=== PATIENT | male | born 1995 | race Caucasian/White ===

== ENCOUNTER 2018-10-25 16:32 | Observation (INO) ==
[2018-10-25 17:31] LABS: OCCULT BLOOD 1 POSITIVE (NEGATIVE)
[2018-10-25 17:32] LABS: BASO# 0.03 X1000 (0.0-0.2); BASO% 0.2 % (0.0-0.8); EOS# 0.02 X1000 (0.0-0.7); EOS% 0.2 % (0.0-10.0); HEMATOCRIT 45.4 % (42.0-52.0); HEMOGLOBIN 16.5 g/dL (14.0-18.0); IMM GRAN# 0.03 X1000 (0.0-0.04); IMM GRAN% 0.2 % (0.0-0.5); LYMPH% 7.8 % (20.5-51.1); MCH 28.1 PG (27-31); MCHC 36.3 g/dL (33-37); MCV 77.3 FL (81-99); MONO% 5.4 % (1.7-9.3); MPV 10.3 FL (7.4-10.4); NEUT# 11.11 X1000 (1.4-6.5); NEUT% 86.2 % (42.2-75.2); PLT 239 X1000 (130-400); RBC 5.87 XMIL (4.7-6.1); RDW 13.7 % (11.5-14.5); WBC 12.89 X1000 (4.8-10.8)
--- NOTE | 2018-10-25 17:43 | PROVIDER DOCUMENTATION ---
HPI-Abdominal Pain/GI Problem - General Chief Complaint: Rectal Bleeding Stated Complaint: PASSING BLOOD FEVER Time Seen by Provider: 10/25/18 16:56 Source: patient, family Allergies/Adverse Reactions: Patient Allergies Allergy/AdvReac Type Severity Reaction Status Date / Time diphenhydramine AdvReac Unknown Verified 10/25/18 17:23 [From Benadryl] Home Medications: Home Medication List Medication Instructions Recorded Confirmed Last Taken Type NK [No Home Medications] 10/25/18 10/25/18 Unknown History - History of Present Illness-ABD Nature of Presenting Problems: [id number] presents to the ER with GI bleed x 2 days with fever and abd pain in the LLQ and RLQ. He reports dark maroon stools with clots with each BM. Abdominal Pain Onset Location: reports: RLQ, LLQ Quality of Pain: reports: cramping, sharp Severity in ED: reports: moderate Onset/Duration: reports: 2 days ago Timing: reports: intermittent, getting worse Exposure to sick contacts?: No Associated Symptoms: reports: loss of appetite, other (lightheadedness) Last BM: this morning Dark Stools Present?: reports: maroon, black Rectal Bleeding: reports: blood mixed with stool Rectal Pain: reports: none Similar Symptoms Previously?: No Recently seen or treated by another doctor?: No Review of Systems - Adult - REVIEW OF SYSTEMS - ADULT Constitutional: reports: see HPI, chills, fever (states he did not check it but feels like he was) Eyes: reports: no symptoms reported Ears, Nose, Mouth & Throat: reports: no symptoms reported Cardiovascular: reports: no symptoms reported Respiratory: reports: no symptoms reported. denies: cough, wheezing Gastrointestinal: reports: see HPI, abdominal pain, nausea, rectal bleeding Genitourinary: reports: no symptoms reported Musculoskeletal: reports: no symptoms reported Integumentary: reports: no symptoms reported Neurological: reports: see HPI, dizziness/vertigo Psychiatric: reports: no symptoms reported Endocrine: reports: no symptoms reported Hematologic/Lymphatic: reports: no symptoms reported Allergic/Immunologic: reports: no symptoms reported All Other Systems: Reviewed and Negative Past History - Adult - PAST MEDICAL HISTORY-ADULT Review of Records: reports: Old Records Reviewed, Nursing Assessment Review, Med ications Reviewed, Social history reviewed & non-contributory. Major Childhood Illnesses: reports: denies history Cardiovascular: reports: denies history Respiratory: reports: denies history Gastrointestinal: reports: denies history Obstetrical/Gynecological: reports: denies history Genitourinary: reports: denies history Musculoskeletal: reports: denies history Neurological: reports: denies history Endocrine/Immune: reports: denies history Other Conditions: reports: denies history - IMMUNIZATION STATUS Childhood Immunizations: See Nurse Assessment Flu Vaccine: See Nurse Assessment - FAMILY HISTORY Family History: reviewed, not pertinent - SOCIAL HISTORY Smoking: denies Substance Use: denies Living Situation: family Physical Exam-General - PHYSICAL EXAM-ADULT Initial Vital Signs Reviewed: Yes - CONSTITUTIONAL General Appearance: alert, no apparent distress, mild distress, anxious - EYES Eyes: PERRL/EOMI, pink conjunctivae - HEAD, EARS, NOSE, MOUTH & THROAT HENMT: normocephalic/atraumatic, moist mucous membranes - NECK Neck: non-tender, full range of motion, supple - RESPIRATORY Respiratory: lungs clear, normal breath sounds - CARDIOVASCULAR Cardiovascular: normal peripheral pulses, regular rate, rhythm - GASTROINTESTINAL (ABDOMEN) Abdominal Exam: soft, tenderness (RLQ, LLQ) - MUSCULOSKELETAL Back Exam: normal inspection, no CVA tenderness, no vertebral tenderness Extremity: normal gait Peripheral Pulses: radial (R): 2+, radial (L): 2+ - SKIN Integumentary: normal color, normal turgor, warm/dry - NEUROLOGIC Neurologic: grossly normal - PSYCHIATRIC Psych/Mental Status: normal mood/affect, oriented x 3 Progress - PLAN OF CARE/RESULTS Progress/Plan/Lab Results: Vital Signs - 8 hr 10/25/18 16:37 Temperature 98.6 F Pulse Rate 69 Respiratory Rate 20 Blood Pressure 135/90 O2 Sat by Pulse Oximetry 98 Laboratory Results - last 24 hr 10/25/18 10/25/18 17:05 17:10 WBC 12.89 H RBC 5.87 Hgb 16.5 Hct 45.4 MCV 77.3 L MCH 28.1 MCHC 36.3 RDW Std Deviation 13.7 Plt Count 239 MPV 10.3 Immature Gran % (Auto) 0.2 Neut % (Auto) 86.2 H Lymph % (Auto) 7.8 L [place] % (Auto) 5.4 Eos % (Auto) 0.2 Baso % (Auto) 0.2 Immature Gran # (Auto) 0.03 Neut # (Auto) 11.11 H Lymph # (Auto) 1.00 L [place] # (Auto) 0.70 H Eos # (Auto) 0.02 Baso # (Auto) 0.03 Stool Occult Blood POSITIVE A Orders Category Date Time Status Saline Loc NOW Care 10/25/18 17:[address] ABD/PELVIS W/IV CONT ONLY [CT] Stat Exams 10/25/18 16:58 Ordered CBC WITH ELECTRONIC DIFF [HEME] Stat Lab 10/25/18 17:10 Completed COMPREHENSIVE METABOLIC PANEL [CHEM] Stat Lab 10/25/18 17:10 Received OCCULT BLOOD SCREEN STOOL PL Stat Lab 10/25/18 17:05 Completed TYPE & SCREEN [BBK] Stat Lab 10/25/18 17:10 Received Patient unable to give a stool sample. Orthostatic B/P reveals that patient is symptomatic despite blood counts. Dr Cuadra consulted for tilt and GI bleed, re commendations received to admit to hospitalist and consult GI. patient verbalizes an understanding of POC and agrees with treatment rendered here today. Result Diagrams: 10/25/18 17:10 10/25/18 17:10 - REASSESSMENT Reassessment #1 Time Reassessed: 20:17 Status: unchanged - CONSULTS/PCP/HOSPITALIST Notification #1 *Consult/PCP/Hospitalist*: Dr Cuadra Time Discussed: 20:17 Reason/Comments: GI Bleed Consult Disposition: other (Admit to hospitalist and consult GI) #2 Consult: Dr Cai Time Discussed: 20:17 Reason/Comments: GI Bleed Consult Disposition: Admit Departure - Departure Date of Disposition Decision: 10/25/18 Time of Disposition Decision: 20:23 DIAGNOSIS: GI bleed Qualifiers: GI bleed type/associated pathology: unspecified gastrointestinal hemorrhage type Qualified Code(s): K92.2 - Gastrointestinal hemorrhage, unspecified Disposition: ADMITTED INPATIENT 09 Certified Medical Emergency: Emergent Condition: Critical Additional Freetext Instructions: ED Follow Up Instructions: You have been treated by a care provider in the Emergency Department. These instructions are being provided to you so you can have an understanding of how to care for yourself upon discharge. Upon discharge from the Emergency Department, you are responsible for making arrangements for follow-up care by a physician of your choice. Take all prescribed medications as directed. Return to the Emergency Department immediately for any new or worsening symptoms. You may call the Physician Referral phone number at [phone] to obtain a list of Physicians who are taking new patients. Referrals and Follow-Ups: None,PCP [Primary Care Provider] - - Critical Care Note This patient required my direct & personal management of CC.: No Attestation - Physician/ MARIAH Attestation Patient care was provided by Advanced Practice Provider:: Yes Advanced Practice Provider:: Sameer Villa Advanced Practice Provider documentation review:: The Mid-level provider documentation, treatment plan and medical decision making was reviewed by the physician who agrees with all treatment and medical decision making by the MLP. The physician spent face to face time with patient:: No Advanced Practice Provider documentation review:: Supervising physician onsite and consulted in the evaluation and care of this patient. The physician did not have a face to face encounter with the patient.
[2018-10-25 17:48] LABS: AGAP 12; ALBUMIN 4.7 g/dL (3.5-5.0); ALKALINE PHOSPHATASE 90 U/L (32-122); BUN 9 mg/dL (8-22); CHLORIDE 98 mmol/L (98-107); COSMO 272; CREATININE 1.2 mg/dL (0.7-1.2); ESTIMATED GFR > 60; GLUCOSE 96 mg/dL (70-104); GOT 38 U/L (10-34); GPT 52 U/L (10-44); POTASSIUM 3.7 mmol/L (3.5-5.1); SODIUM 137 mmol/L (136-145); TCO2 26 mmol/L (25-35); TOTAL PROTEIN 7.6 g/dL (6.3-8.3)
[2018-10-25] MEDS ORDERED: NS 1,000 ML IV ONE (18:25)
--- NOTE | 2018-10-25 18:32 | Diag Imaging Result Doc PS360 ---
EXAM: CT ABD/PELVIS W/IV CONT ONLY HISTORY: abd pain TECHNIQUE: CT abdomen and pelvis with intravenous contrast COMPARISON: 05/27/2018 FINDINGS: Normal gallbladder, pancreas, adrenal glands, and kidneys. No hydronephrosis. Mild fatty infiltration of the liver. The spleen is enlarged measuring 6.4 x 13.8 x 16.9 cm. This is similar to the prior study. Normal aorta. Normal appendix. No abscess. No ascites. Fluid distended loops of proximal small bowel with mild wall thickening. The urinary bladder is distended and is normal. Normal prostate. Mildly prominent pelvic and inguinal lymph nodes. Small scattered mesenteric nodes. IMPRESSION: 1.Enteritis 2.Splenomegaly 3.There is mild fatty infiltration of the liver. This exam was performed using automated exposure control, adjustment of mA or kV according to patient size, and/or use of iterative reconstruction technique. Electronically signed by Nico Mason 10/25/2018 6:29 PM
[2018-10-25] MEDS ORDERED: FLAGYL 500 MG/NS 500 MG/100 ML IVPB IV ONE (20:02)
[2018-10-25] MEDS ORDERED: ZOFRAN IV PRN (23:42)
[2018-10-26 00:02] LABS: HEMOGLOBIN 16.3 g/dL (14.0-18.0)
[2018-10-26] MEDS: PROTONIX IV SCH ×3 (00:19→21:02)
[2018-10-26] MEDS: MORPHINE IV PRN (00:20)
[2018-10-26] MEDS ORDERED: STERILE WATER INJ. ONE (00:21)
[2018-10-26] MEDS: CIPRO 400 MG/D5W 400 MG/200 ML IVPB IV SCH ×2 (00:23→11:33)
[2018-10-26] MEDS: NS 1,000 ML IV SCH ×3 (00:24→21:03)
[2018-10-26] MEDS: FLAGYL 500 MG/NS 500 MG/100 ML IVPB IV SCH ×3 (03:02→17:36)
--- NOTE | 2018-10-26 06:26 | HISTORY AND PHYSICAL ---
CHIEF COMPLAINT: Abdominal pain, blood in stool. HISTORY OF PRESENT ILLNESS: A 23-year-old male with no past medical history comes into the ER with blood in his stool since Tuesday. CT scan in the emergency room showed enteritis, fatty liver and splenomegaly. Will place him in the hospital and consult GI. PAST MEDICAL HISTORY: Denies. PREVIOUS SURGICAL HISTORY: Tonsillectomy. SOCIAL HISTORY: Lives with and two kids. 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 No tobacco. Occasional alcohol. No illicit drugs. Denies NSAID use. FAMILY HISTORY: Denies any family history of coronary artery disease, heart disease, stroke or cancer. ALLERGIES: Benadryl. HOME MEDICATIONS: None. REVIEW OF SYSTEMS: Fourteen-point review of systems conducted. Positive for abdominal pain, melena, hematochezia. Denies bladder complaint. Denies constipation or diarrhea. All other systems reviewed and found to be negative. PHYSICAL EXAMINATION: VITAL SIGNS: Temperature 97.9, pulse 67, respirations 18, blood pressure 111/52, oxygen saturation 99% on room air. GENERAL: Pleasant 23-year-old male lying in the ER stretcher, answers all questions appropriately, is alert and oriented times 3. HEENT: Head is atraumatic, normocephalic. Pupils equal, round, reactive to light. Extraocular eye movement is intact. Sclerae are anicteric. Conjunctiva is pink. Oral mucosa is moist. NECK: Supple. No JVD. No thyromegaly. Trachea is midline. No cervical lymphadenopathy. CARDIAC: S1, S2 appreciated. No murmurs, gallops or rubs. LUNGS: Clear to auscultation bilaterally. No rhonchi, wheezes or rales. Symmetrical rise and fall with respirations. ABDOMEN: Soft, nondistended, nontender. Bowel sounds present all 4 quadrants, normoactive. No pulsatile mass. No organomegaly. EXTREMITIES: No clubbing, cyanosis or edema. Two-plus pedal pulses bilaterally. GENITOURINARY: No bladder distention. Patient voids. Otherwise deferred. NEUROLOGIC: Alert and oriented times 3. No focal motor deficits. Otherwise nonfocal examination. DIAGNOSTIC DATA: CT of the abdomen showed enteritis, splenomegaly and fatty liver. LABORATORY DATA: WBC 12.89. Hemoglobin 16.5. Hematocrit 45.4. Platelet count 239. Sodium 137. Potassium 3.7. Chloride 98. Carbon dioxide 26. BUN 9. Creatinine 1.2. Glucose 96. Occult stool positive. ASSESSMENT AND PLAN: 1. Gastrointestinal bleed. Consult Gastroenterology. Protonix 40 IV q.12 hours, morphine as needed for abdominal pain, Zofran as needed for nausea. 2. Abdominal pain with nausea. See above. 3. Fatty liver disease with elevated liver enzymes. Aware. Gastroenterology has been consulted. 4. Splenomegaly. This is of unknown etiology as noted above. Gastroenterology has been consulted. Further recommendations per patient clinical course. Dictated by NANCY Aburto for Armando Cai MD cc: NANCY Aburto MD
[2018-10-26 08:10] LABS: AGAP 13; BUN 11 mg/dL (8-22); CALCIUM 8.4 mg/dL (8.8-10.2); CHLORIDE 102 mmol/L (98-107); COSMO 275; CREATININE 1.2 mg/dL (0.7-1.2); ESTIMATED GFR > 60; GLUCOSE 97 mg/dL (70-104); POTASSIUM 3.5 mmol/L (3.5-5.1); SODIUM 138 mmol/L (136-145); TCO2 23 mmol/L (25-35)
[2018-10-26 08:36] LABS: BASO# 0.02 X1000 (0.0-0.2); BASO% 0.3 % (0.0-0.8); EOS# 0.08 X1000 (0.0-0.7); EOS% 1.3 % (0.0-10.0); HEMATOCRIT 42.5 % (42.0-52.0); HEMOGLOBIN 15.9 g/dL (14.0-18.0); IMM GRAN# 0.02 X1000 (0.0-0.04); IMM GRAN% 0.3 % (0.0-0.5); LYMPH# 1.64 X1000 (1.2-3.4); LYMPH% 27.3 % (20.5-51.1); MCH 29.1 PG (27-31); MCHC 37.4 g/dL (33-37); MCV 77.8 FL (81-99); MONO# 0.68 X1000 (0.11-0.59); MONO% 11.3 % (1.7-9.3); MPV 10.5 FL (7.4-10.4); NEUT# 3.57 X1000 (1.4-6.5); NEUT% 59.5 % (42.2-75.2); PLT 206 X1000 (130-400); RBC 5.46 XMIL (4.7-6.1); RDW 14.2 % (11.5-14.5); WBC 6.01 X1000 (4.8-10.8)
[2018-10-26] MEDS: TYLENOL PO PRN ×2 (09:08→18:33)
[2018-10-26 11:28] LABS: RETIC% 1.37 % (0.8-2.1)
[2018-10-26] MEDS: SODIUM CHLORIDE 0.9% INJ SCH (11:33)
[2018-10-26 12:05] LABS: FERRITIN 294 ng/mL (30-400)
--- NOTE | 2018-10-26 12:34 | PROGRESS NOTE ---
DATE: 10/26/2018 SUBJECTIVE: Patient reports feeling fine. Reports feeling hungry. No more episodes of bloody stools. OBJECTIVE: Vital Signs: Temperature 98.5 degrees, heart rate 58, respiratory rate 18, blood pressure 117/51, O2 saturation 97% on room air. General examination: This is a 23-year-old male, lying in bed in no acute distress. Cardiovascular exam: S1, S2 heard. No murmurs, gallops, or rubs. Regular rate and rhythm. Respiratory exam: Clear bilaterally to auscultation. No work of breathing or using accessory muscles. Abdomen: Soft, nontender to palpation. Bowel sounds present. No organomegaly. Extremities: No clubbing, cyanosis, or edema. Peripheral pulses present in both legs. Neurological exam: Patient is alert and oriented x3. Moves 4 extremities. LABORATORY DATA: Reviewed. ASSESSMENT: 1. Gastrointestinal bleeding. 2. Abdominal pain with splenomegaly. PLAN: At this point, we have consulted with Dr. Cuadra from GI. Will see what he has to say. There is an order for clear liquids for today. We will continue to monitor. I do not know if this bleeding was secondary to hemorrhoids or not. So, we will see what GI has to say. The CT of the abdomen and pelvis shows splenomegaly that is 6.4 x 13.8 x 16.9, so pretty much enlarged. So, at this point, we will do an anemia panel and will do abdominal ultrasound. When we confirm that finding, we will consult Hematology/Oncology. cc: Reymundo Mendoza MD
[2018-10-26 12:42] LABS: IRON SATURATION 16 %; LDH 175 U/L (135-225); TIBC 257 ug/dL; TOTAL IRON 42 ug/dL (53-167); UNBOUND IRON 215 ug/dL (112-346)
--- NOTE | 2018-10-26 15:21 | Diag Imaging Result Doc PS360 ---
EXAM: US ABDOMEN-COMPLETE INDICATION: gi bleeding, splenomegaly COMPARISON: None. FINDINGS: The gallbladder appears normal with no stones, wall thickening, or pericholecystic fluid. The common bile duct is normal in diameter. Sonographic Yang's sign was reported to be negative. The liver is grossly unremarkable. Portal venous flow is hepatopetal. The pancreas is partially obscured by bowel gas. The visualized portion is unremarkable. The aorta is also obscured. The visualized portion of the IVC is unremarkable. The spleen is enlarged measuring up to 16.7 cm in length. The kidneys are grossly unremarkable. IMPRESSION: Splenomegaly as described. Electronically signed by Yobani Zavala 10/26/2018 3:18 PM
[2018-10-26] MEDS: CIPRO PO SCH (21:02)
[2018-10-26] MEDS: FLAGYL PO SCH (21:02)
--- NOTE | 2018-10-26 23:11 | GASTROENTEROLOGY CONSULTATION ---
DATE: 10/26/2018 REASON FOR CONSULTATION: Abdominal pain, rectal bleeding. HISTORY OF PRESENT ILLNESS: This is a 23-year-old male who reports onset of symptoms on Tuesday. He works nights. 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 He had a bowel movement during work that he had noticed to be bloody. He had 2 other episodes of bloody stools. He had also reported some lower abdominal pain. He reported nausea but denied vomiting. He denied any diarrhea. He states he has not had a bowel movement since Tuesday or Tuesday. He did report a low-grade fever. No reported sick contacts. He did attend [employer] [facility] [employer] over the weekend and had some food from venders. No other friends or family got sick. He has reported sharp/cramping abdominal pain, bilateral lower abdomen, also radiating to the back. He denies any family history of inflammatory bowel disease or colon cancer. He had an EGD and possible colonoscopy as a child. His mother is with him at the time of my evaluation. She states he had reflux as a child. He would have been in his early teens when he had the procedures. PAST MEDICAL HISTORY: None significant. PAST SURGICAL HISTORY: Tonsillectomy. ALLERGIES: Benadryl, unknown reaction. HOME MEDICATIONS: None reported. SOCIAL HISTORY: Denies tobacco or alcohol use. He lives with his . He has 2 children, age 3 and 2. 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 No NSAID use but reports taking Tylenol usually for a headache. REVIEW OF SYSTEMS: Per history of present illness. PHYSICAL EXAMINATION: Vital signs: Temperature 97.9 degrees, pulse 60, respirations 18, blood pressure 113/57. He did have some hypotension in the emergency room. Generally the patient is awake, alert, in no acute distress. HEENT: Normocephalic, atraumatic. Pupils equal, round and reactive to light. Sclerae are nonicteric. Cardiovascular: Regular rate and rhythm. Respiratory: Lung sounds clear. Abdomen is soft. At the time of my evaluation this morning, he was tender in bilateral lower quadrants. Positive bowel sounds. Extremities: No lower extremity edema noted. Neurological: Cranial nerves 2-12 are grossly intact. The patient was awake, alert, oriented to person, place and time. LABORATORY DATA: Hematology on admission: WBC was 12.89. Today WBC is 6.01, hemoglobin 15.9, hematocrit 42.5, MCV 77.8, platelets 206,000. Chemistry: Sodium 138, potassium 3.5, chloride 102, CO2 is 23, BUN 11, creatinine 1.2, glucose 97. Iron 42, calcium 8.4, ferritin 294, total bilirubin 1.10, AST 38, ALT 52, alkaline phosphatase 90. Occult stool was positive. DIAGNOSTIC DATA: Abdominal and pelvis CT scan showed enteritis, with fluid-distended loops of proximal small bowel with wall thickening. Also noted is splenomegaly and mild fatty liver. Abdominal ultrasound showed splenomegaly, spleen measuring up to 16.7 cm. Gallbladder appeared normal, with no stones. Common bile duct was normal. ASSESSMENT AND PLAN: 1. Rectal bleeding, seems to have resolved. 2. Enteritis by radiology, most likely infectious. 3. Elevated liver function tests, with ultrasound showing fatty liver. 4. Splenomegaly. Symptoms most likely infectious etiology. Continue antibiotic, but would change to by mouth instead of intravenously for a total of 5 more days. We will advance his diet to a gastrointestinal soft diet. Recommend to avoid nonsteroidal anti-inflammatory drugs, avoid milk or dairy products for now. If he tolerates his diet, he can be discharged and follow up with us as an outpatient. I have discussed this case with Dr. Cuadra. Thank you for this consultation. Dictated by NANCY Begum for Ho Cuadra MD cc: NANCY Dalal MD
[2018-10-27] MEDS: MORPHINE IV PRN (02:10)
[2018-10-27] MEDS: FLAGYL PO SCH (05:02)
[2018-10-27] MEDS: TYLENOL PO PRN (05:02)
[2018-10-27] MEDS: NS 1,000 ML IV SCH (05:02)
[2018-10-27 07:32] LABS: BASO# 0.02 X1000 (0.0-0.2); BASO% 0.4 % (0.0-0.8); EOS# 0.26 X1000 (0.0-0.7); EOS% 4.9 % (0.0-10.0); HEMATOCRIT 38.7 % (42.0-52.0); HEMOGLOBIN 14.3 g/dL (14.0-18.0); IMM GRAN# 0.02 X1000 (0.0-0.04); IMM GRAN% 0.4 % (0.0-0.5); LYMPH# 2.44 X1000 (1.2-3.4); MCH 28.9 PG (27-31); MCV 78.3 FL (81-99); MONO# 0.53 X1000 (0.11-0.59); MPV 10.2 FL (7.4-10.4); NEUT# 2.03 X1000 (1.4-6.5); NEUT% 38.3 % (42.2-75.2); PLT 192 X1000 (130-400); RBC 4.94 XMIL (4.7-6.1); RDW 14.2 % (11.5-14.5)
[2018-10-27 07:54] LABS: AGAP 13; BUN 11 mg/dL (8-22); CALCIUM 8.4 mg/dL (8.8-10.2); CHLORIDE 104 mmol/L (98-107); COSMO 279; ESTIMATED GFR > 60; GLUCOSE 101 mg/dL (70-104); POTASSIUM 3.8 mmol/L (3.5-5.1); SODIUM 140 mmol/L (136-145); TCO2 23 mmol/L (25-35)
[2018-10-27 07:57] LABS: ALB/GLOB RATIO 1.8; ALBUMIN 3.8 g/dL (3.5-5.0); DIRECT BILIRUBIN 0.1 mg/dL (0.00-0.20); TOTAL BILIRUBIN 0.52 mg/dL (0.20-1.00); TOTAL PROTEIN 5.9 g/dL (6.3-8.3)
[2018-10-27 08:41] LABS: BANDS 2 % (0-1); EOS 4 % (1-10); LARGE PLATELETS 1+; LYMPHS 52 % (21-51); SEGS 34 % (42-75)
[2018-10-27 10:29] LABS: HEPATITIS PROFILE ACUTE SEE COMMENTS
[2018-10-27] MEDS: PROTONIX IV SCH (10:33)
[2018-10-27] MEDS: SODIUM CHLORIDE 0.9% INJ SCH (10:33)
[2018-10-27] MEDS: CIPRO PO SCH (10:33)
[2018-10-27] MEDS ORDERED: VENOFER 500 MG in NS 250 ML IV ONE (11:00)
--- NOTE | 2018-10-27 11:59 | Diag Imaging Result Doc PS360 ---
EXAM: CT HEAD W/O CONTRAST 10/27/2018 HISTORY: severe headache TECHNIQUE: This exam was performed using automated exposure control, adjustment of mA or kV according to patient size, and/or use of iterative reconstruction technique. COMMENT: There is no evidence of mass effect, bleed, or abnormal extra-axial fluid collection. The visualized paranasal sinuses are clear. The calvarium is intact. IMPRESSION: No evidence of acute intracranial disease. Electronically signed by Hernando Santos 10/27/2018 11:57 AM
[2018-10-27] MEDS ORDERED: TORADOL IV ONE (12:07)
[2018-10-27 15:31] VITALS: BP 113/57
--- NOTE | 2018-10-27 15:57 | GASTROENTEROLOGY PROGRESS NOTE ---
DATE: 10/27/2018 SUBJECTIVE: The patient is still complaining of headache and abdominal pain. He has tolerated his diet. He has reported some nausea and occasional lightheadedness. OBJECTIVE: Vital Signs: Temperature 97.5 degrees, pulse 46, respirations 18, blood pressure 114/62. General: Patient is awake and alert. No acute distress. He is still complaining of some abdominal pain and nausea. LABORATORY: Hematology: WBC 5.30, hemoglobin 14.3, hematocrit 38.7, MCV 78.3, platelet 192,000. Chemistry: Sodium 140, potassium 3.8, chloride 104, CO2 of 23, BUN 11, creatinine 1.0, glucose 101. ASSESSMENT AND PLAN: 1. Rectal bleeding seems to have resolved. 2. Enteritis, possible infectious. 3. Headache/lightheaded: I believe a CT scan has been ordered. Continue symptomatic treatment. He can try Gatorade for fluid/electrolyte replacement. Recommend bland diet. Further plans to be made as needed. Recommend patient follow up with us as an outpatient. Dictated by NANCY Begum for Ho Cuadra MD cc: NANCY Dalal MD MTDD
--- NOTE | 2018-10-27 16:31 | GASTROENTEROLOGY PROGRESS NOTE ---
DATE: 10/27/2018 SUBJECTIVE: Patient is still complaining of abdominal pain and a headache. He is still having some lightheadedness and nausea. A CT scan was done that showed no evidence of acute disease. OBJECTIVE: Vital Signs: Temperature 97.6 degrees, pulse 62, respirations 18, blood pressure 125/66. General: The patient was awake and alert in no acute distress. He has had a bowel movement today that was dark in color. Hemoglobin and hematocrit stable at 14.3, 38.7. ASSESSMENT AND PLAN: 1. Rectal bleeding has resolved. 2. Enteritis by radiology most likely infectious. 3. Elevated liver function tests are normal today. 4. Abdominal pain, nausea. 5. Headache. PLAN: Continue symptomatic treatment and supportive care. Symptoms most likely infectious etiology. Continue antibiotics for 5 more days. Recommend a bland diet for the next week. Avoid NSAIDs. Avoid milk or dairy products for now. Recommend fluid replacement with Gatorade. Recommend he not go back to work until next week. Recommend he follow up in the office after discharge. Further plans to be made according to his progress. I believe he may go home today. If he is still in the hospital over the weekend, we will follow with him then. Further plans to be made as needed. The patient was also seen by Dr. Cuadra. Dictated by NANCY Begum for Ho Cuadra MD cc: NANCY Dalal MD
--- NOTE | 2018-10-28 04:37 | DISCHARGE SUMMARY ---
ADMISSION DATE: 10/25/2018 DISCHARGE DATE: 10/27/2018 ADMITTING DIAGNOSES: 1. Gastrointestinal bleed. 2. Abdominal pain with nausea. 3. Fatty liver disease with elevated liver enzymes. 4. Splenomegaly. DISCHARGE DIAGNOSIS: 1. Gastrointestinal bleed, resolved. 2. Abdominal pain with splenomegaly. 3. Enteritis, possibly infectious. PROCEDURES AND FINDINGS: CT of the abdomen and pelvis shows enteritis, splenomegaly, and a mild fatty infiltration of the liver. This was done on 10/25/2018. Abdominal ultrasound performed on 10/26/[address] of the head done on 10/27/2018 shows no evidence of acute intracranial disease. CONSULTS: Dr. Ho Cuadra. HOSPITAL COURSE: Mr. Noel is a 23-year-old male who presented to the ER with blood in his stools for several days. A CT scan in the ER showed enteritis, fatty liver and splenomegaly. The patient was placed in the hospital and GI was consulted. The patient reports that he had several bowel movements that were bloody and some lower abdominal pain. He denied any vomiting or diarrhea. He had also had a low-grade fever. He reports going to the [facility] the weekend prior to coming and that he had ate some food from some vendors. He reported some sharp cramping abdominal pain to the bilateral lower abdomen radiating to his back. The patient was placed on antibiotics while in the hospital for enteritis. His diet was advanced to a soft diet. The patient is to continue oral antibiotics for 5 days. He is being discharged home today. He is to remain on a bland diet for the next week. He is to avoid any NSAIDs, or milk products or dairy for now. Fluid replacement with Gatorade. He is to not go back to work until next week. He is to follow up with Dr. Cuadra in the office. DISCHARGE LABORATORY DATA: White blood cell count 5.30, hemoglobin 14.3, hematocrit 38.7, platelet count 192,000. Sodium 140, potassium 3.8, chloride 104, carbon dioxide 23, anion gap 13, BUN is 11, creatinine is 1.0, estimated GFR is greater than 60, glucose is 101, calcium is 8.4, iron is 42, TIBC is 257, ferritin is 294, total bilirubin is 0.52, AST is 29, ALT is 42, alkaline phosphatase is 67, folate is 14.2, B12 is 650, TSH is 1.37. DISCHARGE MEDICATION: 1. Ciprofloxacin 500 mg p.o. b.i.d. 2. Flagyl 500 mg p.o. t.i.d. 3. Omeprazole 20 mg 2 tablets p.o. daily. DISCHARGE DIET: The patient is to continue a bland diet for the next week. He is to avoid any milk or dairy products. He is to fluid replace with Gatorade. DISCHARGE ACTIVITY: He is to not go back to work until next week. DISCHARGE DISPOSITION: The patient is discharge home with self care. He is to follow up with Dr. Cuadra. He is to call and make an appointment with his office next week. He is to avoid any smoking, alcohol or NSAIDs. Dictated by NANCY Prieto for Reymundo Mendoza MD Addendum: Patient seen and examined by myself. Agree with NANCY note. It reflects my assessment and plan. Patient is being discharged in stable condition. Will be seen by GI in a week. cc: MD Ho Boston MD [facility]
== END 2018-10-27 16:51 | disposition home or self-care (01) ==
LOC: P.ED 16:32 → SUATTDRO 16:33 → 3N 16:33 → INTOOBSV 16:33
PROVIDERS: ATTEND Internal Medicine